=== PATIENT | female | born 1985 | race American Indian/Alaskan Native ===

== ENCOUNTER 2021-01-31 13:28 | Emergency (ER) | payer OTHER ==
--- NOTE | 2021-01-31 15:36 | Emergency Department Report ---
ED General Adult HPI - General Chief complaint: Extremity Problem,Nontraumatic Stated complaint: SHOULDER PAINS RT/FOOT ANKLE RT Time Seen by Provider: 01/31/21 15:11 Source: patient Mode of arrival: Ambulatory Limitations: No Limitations - History of Present Illness MD Complaint: swollen painful left earlobe rash -: Sudden, days(s) (2) Location: face (left earlobe) Radiation: non-radiation Severity scale (0 -10): 7 Quality: aching, sharp Consistency: constant Improves with: none Worsens with: none Associated Symptoms: denies other symptoms, rash (swollen painful rash on left earlobe). denies: confusion, chest pain, cough, diaphoresis, fever/chills, headaches, loss of appetite, malaise, nausea/vomiting, seizure, shortness of breath, syncope, weakness Treatments Prior to Arrival: none - Related Data Previous Rx's Medication Instructions Recorded Last Taken Type Ibuprofen [Motrin] 600 mg PO Q8H PRN #20 tablet 01/31/21 Unknown Rx Sulfamethoxazole/Trimethoprim 1 each PO Q12H #20 tablet 01/31/21 Unknown Rx [Bactrim DS TAB] Allergies Allergy/AdvReac Type Severity Reaction Status Date / Time No Known Allergies Allergy Unverified 01/31/21 14:46 ED Review of Systems ROS: Stated complaint: SHOULDER PAINS RT/FOOT ANKLE RT Other details as noted in HPI Constitutional: denies: chills, fever Eyes: denies: eye pain, eye discharge, vision change ENT: ear pain (left ear lobe pain), other (painful swollen rash on left ear lobe). denies: throat pain Respiratory: denies: cough, shortness of breath, wheezing Cardiovascular: denies: chest pain, palpitations Endocrine: no symptoms reported Gastrointestinal: denies: abdominal pain, nausea, diarrhea Genitourinary: denies: urgency, dysuria, discharge Musculoskeletal: denies: back pain, joint swelling, arthralgia Skin: rash (Swollen, painful left earlobe rash). denies: lesions Neurological: denies: headache, weakness, paresthesias Psychiatric: denies: anxiety, depression Hematological/Lymphatic: denies: easy bleeding, easy bruising ED Past Medical Hx - Past Medical History Previous Medical History?: No - Surgical History Additional Surgical History: C sect x 1 - Social History Smoking Status: Never Smoker Substance Use Type: Marijuana - Medications Home Medications: Home Medications Medication Instructions Recorded Confirmed Last Taken Type Ibuprofen [Motrin] 600 mg PO Q8H PRN #20 tablet 01/31/21 Unknown Rx Sulfamethoxazole/Trimethoprim 1 each PO Q12H #20 tablet 01/31/21 Unknown Rx [Bactrim DS TAB] ED Physical Exam - General Limitations: No Limitations General appearance: alert, in no apparent distress - Head Head exam: Present: atraumatic, normocephalic, normal inspection - Eye Eye exam: Present: normal appearance, PERRL, EOMI Pupils: Present: normal accommodation - ENT ENT exam: Present: mucous membranes moist, TM's normal bilaterally, other (Swollen, tender fluctuant maculopapular rash on left earlobe tragus) - Neck Neck exam: Present: normal inspection, full ROM. Absent: tenderness - Respiratory Respiratory exam: Present: normal lung sounds bilaterally. Absent: respiratory distress, wheezes, rales, rhonchi, stridor, chest wall tenderness, accessory muscle use, decreased breath sounds, prolonged expiratory - Cardiovascular Cardiovascular Exam: Present: regular rate, normal rhythm, normal heart sounds. Absent: systolic murmur, diastolic murmur, rubs, gallop - GI/Abdominal GI/Abdominal exam: Present: soft, normal bowel sounds. Absent: distended, tenderness, guarding, rebound, hyperactive bowel sounds, hypoactive bowel sounds - Extremities Exam Extremities exam: Present: normal inspection, full ROM, normal capillary refill - Back Exam Back exam: Present: normal inspection, full ROM. Absent: tenderness, CVA tenderness (R), CVA tenderness (L), muscle spasm, paraspinal tenderness, vertebral tenderness - Neurological Exam Neurological exam: Present: alert, oriented X3, CN II-XII intact, normal gait, reflexes normal - Psychiatric Psychiatric exam: Present: normal affect, normal mood - Skin Skin exam: Present: warm, dry, intact, normal color, rash (Swollen, severely tender, fluctuant left earlobe maculopapular rash). Absent: erythema - I & D Left Ear Type of Procedure: Simple Site: left earlobe Blade Size: 11 I & D Procedure: betadine prep, sterile drapes applied, sterile dressing applied, gauze wick placed Progress: left ear lobe rash Critical care attestation.: If time is entered above; I have spent that time in minutes in the direct care of this critically ill patient, excluding procedure time. ED Disposition Clinical Impression: Infection of skin of left ear lobe, Cellulitis of left earlobe Disposition: TO HOME OR SELFCARE Is pt being admited?: No Does the pt Need Aspirin: No Condition: Stable Instructions: Cellulitis, Adult, [id number] Additional Instructions: Take medication with food, drink plenty of fluids and follow-up with your primary care physician in 7 to 10 days for reevaluation. Return to the ED immediately if symptoms get worse. Prescriptions: Sulfamethoxazole/Trimethoprim [Bactrim DS TAB] 1 each PO Q12H #20 tablet Ibuprofen [Motrin] 600 mg PO Q8H PRN #20 tablet PRN Reason: Pain Referrals: [facility] [Provider Group] - 3-5 Days Forms: Work/School Release Form(ED) Time of Disposition: 15:36 Print Language: MAURITANIAN
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
[2021-01-31 16:10] VITALS: BP 129/77
--- NOTE | 2021-01-31 17:31 | XRay Report ---
RIGHT FOOT 3 VIEW(S) INDICATION / CLINICAL INFORMATION: foot pain RT COMPARISON: None available. FINDINGS: BONES / JOINT(S): No acute fracture or subluxation. Bipartite or multipartite medial great toe sesamo id, alternatively this could represent a remote sesamoid fracture. No significant arthritis. Small os peroneus. SOFT TISSUES: No significant abnormality. ADDITIONAL FINDINGS: None. Signer Name: Barrett Ly MD Signed: 01/31/2021 5:26 PM Workstation Name: [id number]
--- NOTE | 2021-01-31 17:32 | XRay Report ---
Right shoulder 3 views INDICATION: Right shoulder pain IMPRESSION: No fracture or subluxation of the right shoulder is identified. Signer Name: Jonny Ferrari MD Signed: 01/31/2021 5:28 PM Workstation Name: [id number]
== END 2021-01-31 19:03 | disposition home or self-care (01) ==
LOC: ED 13:28
DX: M25.511 Pain in right shoulder (principal); M25.571 Pain in right ankle and joints of right foot; G89.29 Other chronic pain; F12.90 Cannabis use, unspecified, uncomplicated; Z79.899 Other long term (current) drug therapy; Z98.890 Other specified postprocedural states

== ENCOUNTER 2021-02-14 17:03 | Emergency (ER) | payer OTHER ==
[2021-02-14 17:20] VITALS: BP 120/76
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
== END 2021-02-14 19:59 | disposition home or self-care (01) ==
LOC: ED 17:03
DX: M25.561 Pain in right knee (principal); M25.571 Pain in right ankle and joints of right foot; M25.511 Pain in right shoulder; M54.5 Low back pain; F12.10 Cannabis abuse, uncomplicated; Z98.890 Other specified postprocedural states; Z79.1 Long term (current) use of non-steroidal anti-inflammatories (NSAID); Z79.899 Other long term (current) drug therapy; V49.49XA Driver injured in collision with other motor vehicles in traffic accident, initial encounter; Y93.89 Activity, other specified; Y92.410 Unspecified street and highway as the place of occurrence of the external cause; Y99.8 Other external cause status
CPT/HCPCS: 99282

== ENCOUNTER 2021-02-28 17:26 | Emergency (ER) | payer OTHER ==
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
[2021-02-28 18:44] LABS: Basophils # (Auto) 0.1 K/mm3 (0.0-0.1); Basophils % (Auto) 0.6 % (0.0-1.8); Eosinophils # (Auto) 0.1 K/mm3 (0.0-0.4); Eosinophils % (Auto) 1.1 % (0.0-4.3); Hematocrit 40.7 % (30.3-42.9); Hemoglobin 13.3 gm/dl (10.1-14.3); Lymphocytes # (Auto) 1.6 K/mm3 (1.2-5.4); Lymphocytes % (Auto) 17.4 % (13.4-35.0); Mean Corpuscular HGB Conc 33 % (30-34); Mean Corpuscular Volume 90 fl (79-97); Monocytes # (Auto) 0.8 K/mm3 (0.0-0.8); Monocytes % (Auto) 8.5 % (0.0-7.3); Platelet Count 353 K/mm3 (140-440); Red Blood Count 4.54 M/mm3 (3.65-5.03); Red Cell Distribution Width 13.8 % (13.2-15.2)
[2021-02-28 18:55] LABS: INR 1.06 (0.87-1.13); Partial Thromboplastin Time 30.4 Sec. (24.2-36.6); Thrombin Time 16.9 Sec. (15.1-19.6)
--- NOTE | 2021-02-28 18:57 | XRay Report ---
CHEST 1 VIEW 02/28/2021 5:49 PM INDICATION / CLINICAL INFORMATION: Left arm tingling. Blurred vision. Facial drooping. COMPARISON: None available. FINDINGS: SUPPORT DEVICES: None. HEART / MEDIASTINUM: The heart size and pulmonary vasculature are normal. The aorta is normal in jeanie eliana. LUNGS / PLEURA: No significant pulmonary or pleural abnormality. No pneumothorax. ADDITIONAL FINDINGS: The patient's brassiere was left in place. IMPRESSION: No acute findings. Signer Name: Barrett Webb MD Signed: 02/28/2021 6:53 PM Workstation Name: [id number]
[2021-02-28 19:03] LABS: Creatine Kinase MB 1.4 ng/mL (0.0-4.0)
[2021-02-28 19:04] LABS: Alanine Aminotransferase 11 units/L (7-56); Albumin 4.2 g/dL (3.9-5); Blood Urea Nitrogen 7 mg/dL (7-17); Calcium 9.3 mg/dL (8.4-10.2); Hemolysis Index 4
[2021-02-28 19:08] LABS: BUN/Creatinine Ratio 12
--- NOTE | 2021-02-28 21:11 | Cat Scan Report ---
CT BRAIN: 02/28/2021 INDICATION / CLINICAL INFORMATION: Stroke symptoms. COMPARISON: None available. FINDINGS: BRAIN/INTRACRANIAL STRUCTURES: Unenhanced CT images of the brain demonstrate no evidence of acute abn ormality. Ventricles and sulci are normal in size and shape. There is no evidence of acute ischemic injury, hemorrhage, or mass. There are no abnormal extra-axial fluid collections. EXTRACRANIAL STRUCTURES: Unremarkable. IMPRESSION: No acute abnormality. All CT scans at this location are performed using dose reduction to ALARA by means of automated expos ure control. Signer Name: Sujit Albert MD Signed: 02/28/2021 9:06 PM Workstation Name: [id number]
[2021-02-28 21:14] LABS: Bilirubin,Urine NEG (Negative); Blood,Urine NEG (Negative); Color,Urine Yellow (Yellow); Mucus,Urine 1+ /HPF; Protein,Urine <15 mg/dL mg/dL (Negative); Urobilinogen,Urine < 2.0 mg/dL (<2.0)
--- NOTE | 2021-02-28 21:14 | Cat Scan Report ---
CTA NECK WITH CONTRAST 02/28/2021 INDICATION / CLINICAL INFORMATION: stroke sx. COMPARISON: None. TECHNIQUE: Routine CTA of the neck is performed. 3-D/MIP reformats were postprocessed. Percentage st enosis is determined by direct quantitative measurements of diseased internal carotid artery diameter compared with normal distal internal carotid artery reference segments or by criteria similar to MARQUITA CET where applicable. All CT scans at this location are performed using CT dose reduction for ALARA b y means of automated exposure control. CONTRAST: 100 ml of Omnipaque 350 FINDINGS: Carotid bifurcations: There is no evidence of measurable carotid bifurcation stenosis. Slight irregul arity at the origin of the internal carotid arteries is present. Carotid arteries: No significant abnormality. Cervical vertebral arteries: No significant abnormality. Aortic arch: No significant abnormality. None. IMPRESSION: No significant abnormality. Signer Name: Sujit Albert MD Signed: 02/28/2021 9:10 PM Workstation Name: [id number]
--- NOTE | 2021-02-28 21:16 | Cat Scan Report ---
CTA HEAD WITH CONTRAST 02/28/2021 HISTORY: stroke sx. COMPARISON: None. TECHNIQUE: All CT scans at this location are performed using CT dose reduction for ALARA by means of automated exposure control.. 3-D/MIP reformats postprocessed. Percentage stenosis is determined by d irect quantitative measurements of diseased internal carotid artery diameter compared with normal dis yumiko internal carotid artery reference segments or by criteria similar to NASCET where applicable. CONTRAST: 100 ml of Omnipaque 350 FINDINGS: CTA HEAD: Intracranial vertebral arteries: No significant abnormality. Basilar artery: No significant abnormality. Posterior cerebral arteries: No significant abnormality. Intracranial internal carotid arteries: No significant abnormality. Anterior cerebral arteries: No significant abnormality. Middle cerebral arteries: No significant abnormality. Dural venous sinuses:Not optimally opacified. No significant abnormality. Additional findings: None. IMPRESSION: 1. No significant abnormality. Signer Name: Sujit Albert MD Signed: 02/28/2021 9:12 PM Workstation Name: [id number]
[2021-02-28 22:58] VITALS: BP 122/82
--- NOTE | 2021-03-03 17:45 | Electrocardiograph Report ---
[facility] Test Date: 2021-02-28 Test Time: 18:13:53 Pat Name: JACK ULRICH Department: Room: Gender: F Sql Ssrs Ssis Developer: NURSE : 1985 Requested By: TIMMY DOUGHERTY Order Number: [id number] Reading MD: Rosenda Bauer Measurements Intervals [place] Rate: 69 P: 36 SD: 149 QRS: 54 QRSD: 76 T: 34 QT: 383 QTc: 410 Interpretive Statements Sinus rhythm Probable left atrial enlargement Anteroseptal infarct, age indeterminate No previous ECG available for comparison Electronically Signed On 03-03-2021 17:45:26 EDT by Rosenda Bauer
== END 2021-02-28 22:59 | disposition home or self-care (01) ==
LOC: ED 17:26
DX: R20.2 Paresthesia of skin (principal); R03.0 Elevated blood-pressure reading, without diagnosis of hypertension; Z98.890 Other specified postprocedural states; Z79.899 Other long term (current) drug therapy
CPT/HCPCS: 36415; 70450; 70496; 70498; 71045; 80053; 81001; 82550; 82553; 82962; 84484; 84702; 85025; 85610; 85670; 85730; 93005; 99285; Q9967

== ENCOUNTER 2021-09-19 16:46 | Emergency (ER) | payer OTHER ==
[2021-09-19 18:07] VITALS: BP 136/95
--- NOTE | 2021-09-19 18:09 | Emergency Department Report ---
ED Headache HPI - General Stated Complaint: HBP Time Seen by Provider: 09/19/21 18:05 Source: patient Exam Limitations: no limitations - History of Present Illness Initial Comments: Patient is a 36-year-old female presents emergency room complaints of a frontal headache that began 3 days ago. She states that she also has frontal facial pressure. Patient states that she took her blood pressure at home and reports that it was elevated at 140/100. She states that she was prescribed hydrochlorothiazide 12.5 mg back in February but did not take the medication as prescribed. She denies any fever, nausea, vomiting, diarrhea, vision changes, numbness, weakness, speech disturbance, gait disturbance. She denies any other past medical history. No allergies to medications. Allergies/Adverse Reactions: Allergies No Known Allergies Allergy (Verified 02/28/21 17:29) Home Medications: Ambulatory Orders Ibuprofen [Motrin] 800 mg PO Q8HR PRN #30 tablet 01/31/21 methylPREDNISolone [Medrol 4MG DOSEPAK (21 tabs)] 4 mg PO DAILY #1 tab.ds.pk 01/31/21 Naproxen [EC-Naprosyn] 500 mg PO BID PRN #14 tablet.dr 02/14/21 methOCARBAMOL [Robaxin TAB] 500 mg PO BID PRN #14 tab 02/14/21 Aspirin [Aspirin BABY CHEW TAB] 81 mg PO QDAY #30 tab.chew 02/28/21 hydroCHLOROthiazide [Hctz] 12.5 mg PO QDAY #30 capsule 02/28/21 Butalb/Acetaminophen/Caffeine [Fioricet 50-300-40 mg CAP] 1 cap PO Q8HR PRN #12 cap 09/19/21 Fluticasone [Flonase] 1 spray NS QDAY #1 bottle 09/19/21 guaiFENesin ER [Mucinex ER] 600 mg PO Q12H #14 tab 09/19/21 ED Review of Systems ROS: Stated complaint: HBP Other details as noted in HPI Comment: All other systems reviewed and negative ED Past Medical Hx - Surgical History Additional Surgical History: C sect x 1 - Social History Smoking Status: Never Smoker Substance Use Type: Alcohol - Medications Home Medications: Home Medications Medication Instructions Recorded Confirmed Last Taken Type Ibuprofen [Motrin] 800 mg PO Q8HR PRN #30 tablet 01/31/21 Unknown Rx methylPREDNISolone [Medrol 4MG 4 mg PO DAILY #1 tab.ds.pk 01/31/21 Unknown Rx DOSEPAK (21 tabs)] Naproxen [EC-Naprosyn] 500 mg PO BID PRN #14 tablet.dr 02/14/21 Unknown Rx methOCARBAMOL [Robaxin TAB] 500 mg PO BID PRN #14 tab 02/14/21 Unknown Rx Aspirin [Aspirin BABY CHEW TAB] 81 mg PO QDAY #30 tab.chew 02/28/21 Unknown Rx hydroCHLOROthiazide [Hctz] 12.5 mg PO QDAY #30 capsule 02/28/21 Unknown Rx Butalb/Acetaminophen/Caffeine 1 cap PO Q8HR PRN #12 cap 09/19/21 Unknown Rx [Fioricet 50-300-40 mg CAP] Fluticasone [Flonase] 1 spray NS QDAY #1 bottle 09/19/21 Unknown Rx guaiFENesin ER [Mucinex ER] 600 mg PO Q12H #14 tab 09/19/21 Unknown Rx ED Physical Exam - General Limitations: No Limitations General appearance: alert, in no apparent distress - Head Head exam: Present: atraumatic, normocephalic - Eye Eye exam: Present: normal appearance, PERRL, EOMI - ENT ENT exam: Present: normal orophraynx, mucous membranes moist, other (mild frontal sinus ttp bilaterally, no erythema or purulent drainage from the nares) - Respiratory Respiratory exam: Present: normal lung sounds bilaterally. Absent: respiratory distress, wheezes, rales, rhonchi, stridor, chest wall tenderness, accessory muscle use, decreased breath sounds, prolonged expiratory - Cardiovascular Cardiovascular Exam: Present: regular rate, normal rhythm, normal heart sounds. Absent: systolic murmur, diastolic murmur, rubs, gallop - Neurological Exam Neurological exam: Present: alert, oriented X3, CN II-XII intact, normal gait. Absent: motor sensory deficit - Psychiatric Psychiatric exam: Present: normal affect, normal mood - Skin Skin exam: Present: warm, dry, intact ED Course Vital Signs 09/19/21 17:55 Temperature 98.9 F Pulse Rate 90 Respiratory 18 Rate Blood Pressure 136/95 O2 Sat by Pulse 100 Oximetry ED Medical Decision Making - Medical Decision Making Patient is a 36-year-old female presents emergency room complaints of a frontal headache that began 3 days ago. She states that she also has frontal facial pressure. Patient states that she took her blood pressure at home and reports that it was elevated at 140/100. She states that she was prescribed hydrochlorothiazide 12.5 mg back in February but did not take the medication as prescribed. She denies any fever, nausea, vomiting, diarrhea, vision changes, numbness, weakness, speech disturbance, gait disturbance. She denies any other past medical history. No allergies to medications. Vitals are stable, blood pressure is 136/95. Patient has had no trauma, she has no meningeal signs, no fever, no focal neuro deficits. Patient does have mild bilateral frontal sinus tenderness to palpation. Symptoms have only been ongoing for 3 days. No indication for antibiotic therapy at this time. Patient does appear to be hav ing a possible sinus headache. Patient given prescription for medications. Advised patient Please take medication as prescribed. Increase your fluid intake. Follow-up with your primary care doctor. Keep a blood pressure log and take your blood pressure once in the morning and once at night and take this to the primary care doctor. Eat a low-sodium diet. Incorporate 30 to 60 minutes of daily exercise. Return to emergency room for any new or worsening symptoms. Critical care attestation.: If time is entered above; I have spent that time in minutes in the direct care o f this critically ill patient, excluding procedure time. ED Disposition Clinical Impression: Sinus pressure Headache Qualifiers: Headache type: unspecified Headache chronicity pattern: acute headache Intractability: not intractable Qualified Code(s): R51.9 - Headache, unspecified Disposition: 01 HOME / SELF CARE / HOMELESS Is pt being admited?: No Does the pt Need Aspirin: No Condition: Stable Instructions: Sinus Headache Additional Instructions: Please take medication as prescribed. Increase your fluid intake. Follow-up with your primary care doctor. Keep a blood pressure log and take your blood pressure once in the morning and once at night and take this to the primary care doctor. Eat a low-sodium diet. Incorporate 30 to 60 minutes of daily exercise. Return to emergency room for any new or worsening symptoms. Prescriptions: Butalb/Acetaminophen/Caffeine [Fioricet 50-300-40 mg CAP] 1 cap PO Q8HR PRN #12 cap PRN Reason: headache Fluticasone [Flonase] 1 spray NS QDAY #1 bottle guaiFENesin ER [Mucinex ER] 600 mg PO Q12H #14 tab Referrals: SRIKANTH VIEYRA MD [Staff Physician] - 3-5 Days [facility] [Provider Group] - 3-5 Days [facility], [LAB/CONTRACT] - 3-5 Days [facility] [Outside] - 3-5 Days [facility] [Outside] - 3-5 Days Time of Disposition: 18:08 Print Language: HONG KONGER
== END 2021-09-19 19:13 | disposition home or self-care (01) ==
LOC: ED 16:46
DX: R51.9 Headache, unspecified (principal); J01.90 Acute sinusitis, unspecified; Z98.890 Other specified postprocedural states
CPT/HCPCS: 99282